=== PATIENT | male | born 1985 | race Caucasian/White ===

== ENCOUNTER 2020-10-23 07:27 | Outpatient (REF) | payer OTHER, SELFPAY ==
--- NOTE | ~2020-10-23 | CT_ITS ---
EXAMINATION: CT ABDOMEN AND PELVIS WITH CONTRAST CLINICAL INFORMATION: Surveillance. COMPARISON: None TECHNIQUE: Multidetector volumetric images were obtained from the superior aspect of the liver through the pubic symphysis following administration 85 mL of Omnipaque 350 intravenous contrast. Sagittal and coronal reformatted images were obtained on the technologist's workstation. Oral contrast: Yes This CT examination was performed using dose optimization techniques as appropriate, variously including the following: *Automated exposure control *Adjustment of mA and/or kV according to patient size (this includes techniques or standardized protocols for targeted exams where dose is matched to indication/reason for exam; i.e. extremities or head) *Use of iterative reconstruction technique DLP: 460 mGy-cm FINDINGS: LUNG BASES: The visualized lung bases are unremarkable. LIVER, GALLBLADDER, AND BILIARY TREE: The liver is normal in size, shape, and attenuation. No focal hepatic lesion or biliary ductal dilatation is present. There is a tiny gallstone in the gallbladder. The gallbladder is otherwise unremarkable. PANCREAS: Unremarkable. SPLEEN: Unremarkable. ADRENAL GLANDS: Unremarkable. KIDNEYS AND URETERS: There are areas of cortical thinning or scarring seen in both kidneys. The kidneys are otherwise unremarkable. BLADDER: Unremarkable. GASTROINTESTINAL TRACT: The small and large bowel is unremarkable. The appendix is not seen. There is an esophageal hernia. ABDOMINAL WALL: There is a tiny umbilical hernia containing fat. LYMPH NODES: There are surgical clips in the retroperitoneum suggestive of previous lymph node dissection. No adenopathy or ascites is seen. VASCULAR: Unremarkable. PELVIC VISCERA: Unremarkable. OSSEOUS STRUCTURES: There is bilateral spondylolysis at L5. There is very mild 2 mm anterior subluxation of L5 with respect to S1. No bone lesion is seen. CT/CT abdomen pelvis w con IMPRESSION: Cortical thinning or scarring in both kidneys. Small esophageal hernia. Evidence of previous retroperitoneal lymph node dissection. No adenopathy is seen.
[2020-10-23 08:07] LABS: Blood Urea Nitrogen 10 mg/dL (9-16); Estimated Glomerular Filt Rate > 60
[2020-10-23] MEDS: iohexoL 350 MG/ML 100 ML INFUS..BTL IV (10:22)
[2020-10-23] MEDS: Barium Sulfate Oral (Vanilla) 450 ML ORAL.SUSP 900 ML PO (10:23)
== END 2020-10-23 07:28 | disposition home or self-care (01) ==
LOC: HO.CT 07:27
PROVIDERS: PCP Internal Medicine; Visit Provider Internal Medicine
DX: Z85.47 Personal history of malignant neoplasm of testis (principal)
CPT/HCPCS: 36415; 74177; 82565; 84520; Q9967

== ENCOUNTER → 2023-10-25 10:33 | Outpatient (RCR) | payer OTHER, SELFPAY ==
[2020-09-09 10:25] VITALS: BP 117/72; PULSE 74; RESP 14; TEMP 36.4; O2SAT 96; BMI 21.7
[2020-09-09 11:35] LABS: MANUAL DIFF FLAG NO
[2020-09-09 11:54] LABS: Basophils Percent Auto 0.4 % (0-2); Eosinophils Absolute Auto 0.2 X10*3/uL (0.0-0.4); Eosinophils Percent Auto 3.4 % (0-4); Hematocrit 47.2 % (42-52); Hemoglobin 14.9 g/dl (14.0-18.0); Imm Gran Abs Auto 0.02 X10*3/uL (0.00-0.03); Imm Gran Pct Auto 0.3 % (0.0-0.4); Lymphocytes Absolute Auto 2.4 X10*3/uL (1.2-4.9); Lymphocytes Percent Auto 34.8 % (20-40); Mean Corpuscular HGB Conc 31.6 g/dl (31.0-36.0); Mean Corpuscular Hemoglobin 25.1 pg (27.0-33.0); Mean Corpuscular Volume 79.6 fL (80-98); Mean Platelet Volume 9.7 fL (9.4-12.4); Monocytes Absolute Auto 0.7 X10*3/uL (0.1-1.2); Monocytes Percent Auto 10.6 % (2-11); Neutrophils Absolute Auto 3.4 X10*3/uL (2.0-8.3); Neutrophils Percent Auto 50.5 % (45-73); Platelet Count 243 X10*3/uL (160-400); Red Blood Count 5.93 X10*6/uL (4.60-5.80); Red Cell Distribution Width 13.2 % (11.0-16.0); White Blood Count 6.8 X10*3/uL (4.8-10.8)
[2020-09-09 12:22] LABS: Alanine Aminotransferase 24 U/L (0-40); Albumin Level 4.7 g/dL (3.5-5.0); Alkaline Phosphatase 87 U/L (39-117); Anion Gap 12 (12-20); Aspartate Amino Transferase 18 U/L (5-37); Bilirubin Total 0.7 mg/dL (0.0-1.0); Blood Urea Nitrogen 17 mg/dL (9-16); Calcium 9.5 mg/dL (8.4-10.2); Carbon Dioxide 27 mmol/L (22-29); Chloride 105 mmol/L (96-108); Creatinine Clr Calc Pharmacy 90.8; Estimated Glomerular Filt Rate > 60; Glucose Random 80 mg/dL (60-115); Lactate Dehydrogenase 133 U/L (118-273); Potassium 4.2 mmol/L (3.3-5.1); Sodium 140 mmol/L (135-145); Total Protein 7.4 g/dL (6.5-8.0)
--- NOTE | 2020-09-09 12:24 | P.CNHO_ITS ---
Subjective - Subjective Chief complaint: History of testicular cancer Consult date: 09/09/20 Primary Care Provider: Rob Godoy MD HPI - Consult Narrative Reason for consult: History of testicular cancer Narrative: Myles Donis is a 34 year old male who is here with his mother establishing care. Patient was diagnosed with testicular cancer in [place]. He had surgery including retroperitoneal dissection and 4 cycles of chemotherapy. They are not sure if it is seminoma or non seminoma. They tell me he was advanced stage and that he had to undergo major surgery. He did not receive radiotherapy. After moving to [place], they saw an oncologist associated with [facility] with a decided to switch care citing they were not happy with the care they received. They also stated that they had 1 imaging study done through [facility]. At this time patient states that he is in chronic pain since his cancer surgery. He used to take Percocet but this has been discontinued since he moved to [place]. He now takes Tylenol and ibuprofen as needed. Patient also suffers from insomnia and anxiety symptoms. He has been trying to see a psychiatrist locally but not met somebody that he likes so far. Review of Systems - Constitutional Reports as per HPI, Reports no additional constitutional complaints Oncology Screenings - ECOG Performance Status ECOG Performance Status: 0 [facility] Medical History: Medical History (Last Updated 08/22/20 @ 11:08 by Rob Godoy MD) Prior testicular cancer Family History: Family History (Last Updated 09/09/20 @ 10:32 by Silvia Broderick) Father No problems noted. Brother Testicular cancer Maternal Grandfather Brain cancer HTN (hypertension) Mother COPD (chronic obstructive pulmonary disease) Surgical History: Surgical History (Last Updated 08/12/20 @ 16:11 by Florencio Roche) History of abdominal surgery History of appendectomy History of testicular surgery Social History: Social History (Last Updated 09/09/20 @ 10:32 by Silvia Broderick) Living Situation History: Housing: House Alcohol History: Alcohol intake: current Alcohol History Details: Alcohol intake frequency: holiday/special occasion Tobacco History: Patient Tobacco Use Status: Never used Tobacco Substance Use History: Use of substances other than those prescribed or required for medical reasons : No Occupation Assessmet: service: No Current occupational status: disabled Home Medications and Allergies Home Medications Medication Instructions Recorded Confirmed Type acetaminophen 325 mg tablet 325 mg PO ONCE PRN tab 08/12/20 09/09/20 History ibuprofen 600 mg tablet 600 mg PO TID 08/12/20 09/09/20 History omeprazole 40 mg capsule,delayed 40 mg PO DAILY 08/12/20 09/09/20 History release oxycodone 5 mg tablet 5 mg PO BID PRN 08/12/20 09/09/20 History Allergies Allergy/AdvReac Type Severity Reaction Status Date / Time Iodinated Contrast Media Allergy Rash and Verified 08/22/20 11:06 swollen Physical Exam Vital signs: Vital Signs Temp 97.5 F 09/09/20 10:25 Pulse 74 09/09/20 10:25 Resp 14 09/09/20 10:25 BP 117/72 09/09/20 10:25 Pulse Ox 96 09/09/20 10:25 Intake & Output 09/08/20 09/09/20 09/09/20 18:59 06:59 18:59 Other: Weight 72.8 kg Weight in Grams [id number] Weight 72.8 kg - Constitutional Present: no acute distress, average body habitus - Routine HEENT Exam Head: Present: normal inspection Eye: Present: normal appearance, PERRL - Routine Neck Exam Present: supple. Absent: lymphadenopathy - Routine Chest/Breast/Axilla Exam Axillae: Absent: lymphadenopathy - Routine Respiratory Exam Present: CTAB - Routine Cardiovascular Exam Cardiovascular: Present: RRR, S1, S2 - Routine Abdominal Exam Present: soft Comments: Long linear midline scar which is well-healed. Hem/Onc Consult Result - Labs CBC & Chem 7: 09/09/20 11:32 09/09/20 11:32 Labs: Short CBC 09/09/20 Range/Units 11:32 WBC 6.8 (4.8-10.8) X10*3/uL Hgb 14.9 (14.0-18.0) g/dl Hct 47.2 (42-52) % Plt Count 243 (160-400) X10*3/uL BMP 09/09/20 11:32 Sodium 140 Potassium 4.2 Chloride 105 Carbon Dioxide 27 BUN 17 H Creatinine 1.18 Calcium 9.5 Liver Function 09/09/20 Range/Units 11:32 Total Bilirubin 0.7 (0.0-1.0) mg/dL AST 18 (5-37) U/L ALT 24 (0-40) U/L Alkaline Phosphatase 87 (39-117) U/L Albumin 4.7 (3.5-5.0) g/dL Assessment and Plan (1) Prior testicular cancer Status: Resolved 1. This is a 34-year-old male with history of testicular cancer which was diagnosed and treated in [place] 9 years ago. No records are available at this time. As per history, his stage was advanced and following surgery patient received adjuvant chemotherapy. He also underwent retroperitoneal lymph node dissection. I have ordered blood work including tumor markers LDH, alpha fetoprotein and beta-hCG levels. I have asked for records from [facility] where he was followed briefly and apparently they have records from [place]. Further recommendations to follow after reviewing records. I thank you for this consultation.
[2020-09-10 20:06] LABS: HCG Tumor Marker <3 mIU/mL (<5)
[2020-09-12 12:12] LABS: Alpha Fetoprotein 33.5 ng/mL (<6.1)
--- NOTE | 2020-09-12 15:03 | MHC.HEMONCMA ---
CT orders placed in order contact person.
--- NOTE | 2020-10-16 16:42 | MHC.HEMONC ---
CT APPT BOOKED FOR 10/23/20 AT 8AM . PT AND MOTHER NOTIFIED OF APPT.
--- NOTE | 2020-10-21 16:19 | MHC.HEMONCMA ---
Spoke with patient's mother. I let her know that Dr Carrasco sent over the rx for prednisone and that she can get the benadryl over the counter. Dr Carrasco states that patient needs to take the prednisone starting the night before the CT. On 10/22/2020 at 6pm first prednisone, then another dose at midnight, third dose at 6am and then the fourth dose with TWO 25mg benadryl together [address] to be performed. I explained all of this to the patient's mother, she states she understands and agrees with plan.
--- NOTE | 2020-10-27 10:09 | P.PNHO_ITS ---
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 After orchiectomy, he received 4 cycles of chemotherapy with BEP regimen, apparently he had residual disease so he underwent retroperitoneal dissection. Persistent elevation of tumor marker AFP. Apparently his brother also developed testicular cancer and succumbed to the disease. Interval History Interval history: Patient and his mother are here in follow-up. They here to discuss results of blood work and imaging study. Other than chronic generalized pain he has no new complaints today. [facility] Medical History: Medical History (Last Reviewed 10/27/20 @ 10:24 by Silvia Broderick) Prior testicular cancer Family History: Family History (Last Reviewed 10/27/20 @ 10:24 by Silvia Broderick) Father No problems noted. Brother Testicular cancer Maternal Grandfather Brain cancer HTN (hypertension) Mother COPD (chronic obstructive pulmonary disease) Surgical History: Surgical History (Last Reviewed 10/27/20 @ 10:24 by Silvia Broderick) History of abdominal surgery History of appendectomy History of testicular surgery Social History: Social History (Last Reviewed 10/27/20 @ 10:24 by Silvia Broderick) Living Situation History: Housing: House Alcohol History: Alcohol intake: current Alcohol History Details: Alcohol intake frequency: holiday/special occasion Tobacco History: Patient Tobacco Use Status: Never used Tobacco Substance Use History: Use of substances other than those prescribed or required for medical reasons : No Occupation Assessmet: service: No Current occupational status: disabled Home Medications and Allergies Home Medications Medication Instructions Recorded Confirmed Type acetaminophen 325 mg tablet 325 mg PO ONCE PRN tab 08/12/20 10/27/20 History ibuprofen 600 mg tablet 600 mg PO TID 08/12/20 10/27/20 History omeprazole 40 mg capsule,delayed 40 mg PO DAILY 08/12/20 10/27/20 History release Allergies Allergy/AdvReac Type Severity Reaction Status Date / Time Iodinated Contrast Media Allergy Rash and Verified 10/27/20 10:24 swollen Exam Vital signs: Vital Signs Temp 97.5 F 09/09/20 10:25 Pulse 74 09/09/20 10:25 Resp 14 09/09/20 10:25 BP 117/72 09/09/20 10:25 Pulse Ox 96 09/09/20 10:25 Weight 72.8 kg Body Mass Index 21.7 - Constitutional Present: no acute distress, average body habitus - Routine HEENT Exam Head: Present: normal inspection - Routine Respiratory Exam Present: CTAB - Routine Cardiovascular Exam Cardiovascular: Present: RRR, S1, S2 - Routine Abdominal Exam Present: soft Data - Labs CBC & Chem 7: 09/09/20 11:32 09/09/20 11:32 Labs: 09/09/20 11:32 Alpha Fetoprotein Routine Complete Blood Count Auto Diff Routine Comprehensive Met. Panel Routine HCG Tumor Marker Routine Lactate Dehydrogenase Routine Laboratory Last Values WBC 6.8 X10*3/uL (4.8-10.8) 09/09/20 11:32 RBC 5.93 X10*6/uL (4.60-5.80) H 09/09/20 11:32 Hgb 14.9 g/dl (14.0-18.0) 09/09/20 11:32 Hct 47.2 % (42-52) 09/09/20 11:32 MCV 79.6 fL (80-98) L 09/09/20 11:32 MCH 25.1 pg (27.0-33.0) L 09/09/20 11:32 MCHC 31.6 g/dl (31.0-36.0) 09/09/20 11:32 RDW 13.2 % (11.0-16.0) 09/09/20 11:32 Plt Count 243 X10*3/uL (160-400) 09/09/20 11:32 MPV 9.7 fL (9.4-12.4) 09/09/20 11:32 Immature Gran % (Auto) 0.3 % (0.0-0.4) 09/09/20 11:32 Neut % (Auto) 50.5 % (45-73) 09/09/20 11:32 Lymph % (Auto) 34.8 % (20-40) 09/09/20 11:32 Greenlee % (Auto) 10.6 % (2-11) 09/09/20 11:32 Eos % (Auto) 3.4 % (0-4) 09/09/20 11:32 Baso % (Auto) 0.4 % (0-2) 09/09/20 11:32 Lymph # (Auto) 2.4 X10*3/uL (1.2-4.9) 09/09/20 11:32 Greenlee # (Auto) 0.7 X10*3/uL (0.1-1.2) 09/09/20 11:32 Eos # (Auto) 0.2 X10*3/uL (0.0-0.4) 09/09/20 11:32 Baso # (Auto) 0.0 X10*3/uL (0.0-0.2) 09/09/20 11:32 Abs Immat Gran (auto) 0.02 X10*3/uL (0.00-0.03) 09/09/20 11:32 Absolute Neuts (auto) 3.4 X10*3/uL (2.0-8.3) 09/09/20 11:32 Absolute Nucleated RBC 0.000 X10*3/uL (0.0-0.012) 09/09/20 11:32 Nucleated RBC % (auto) 0.0 /100WBC (0.0-0.2) 09/09/20 11:32 Sodium 140 mmol/L (135-145) 09/09/20 11:32 Potassium 4.2 mmol/L (3.3-5.1) 09/09/20 11:32 Chloride 105 mmol/L (96-108) 09/09/20 11:32 Carbon Dioxide 27 mmol/L (22-29) 09/09/20 11:32 Anion Gap 12 (12-20) 09/09/20 11:32 BUN 17 mg/dL (9-16) H 09/09/20 11:32 Creatinine 1.18 mg/dL (0.5-1.4) 09/09/20 11:32 Estim Creat Clear Calc 90.8 09/09/20 11:32 Estimated GFR > 60 09/09/20 11:32 Random Glucose 80 mg/dL (60-115) 09/09/20 11:32 Calcium 9.5 mg/dL (8.4-10.2) 09/09/20 11:32 Total Bilirubin 0.7 mg/dL (0.0-1.0) 09/09/20 11:32 AST 18 U/L (5-37) 09/09/20 11:32 ALT 24 U/L (0-40) 09/09/20 11:32 Alkaline Phosphatase 87 U/L (39-117) 09/09/20 11:32 Lactate Dehydrogenase 133 U/L (118-273) 09/09/20 11:32 Total Protein 7.4 g/dL (6.5-8.0) 09/09/20 11:32 Albumin 4.7 g/dL (3.5-5.0) 09/09/20 11:32 Alpha Fetoprotein 33.5 ng/mL (<6.1) H 09/09/20 11:32 Tumor Marker HCG <3 mIU/mL (<5) 09/09/20 11:32 Assessment and Plan Patient Active problem list reviewed?: Yes (1) Prior testicular cancer Status: Resolved Assessment and plan: 1. 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 After orchiectomy, he received 4 cycles of chemotherapy with BEP regimen, apparently he had residual disease so he underw ent retroperitoneal dissection. Persistent elevation of tumor marker AFP. In August it was , imaging with CT abdomen/pelvis with contrast performed 10/2020 showed no evidence of disease recurrence. Reviewing his old records, patient has had chronic persistent elevation of AFP. This is probably benign and not an indicator of disease recurrence. CT chest was not performed. Chest x-ray has been ordered. Follow-up in 1 year. - Time Spent With Patient Time Spent with Patient (in minutes): 10
[2020-10-27 10:22] VITALS: BP 122/73; PULSE 84; RESP 14; TEMP 36.2; O2SAT 97; BMI 21.7
--- NOTE | 2020-10-27 14:53 | MHC.HEMONCMA ---
Patient came in for a follow up today and to go over recent CT scans. Patient states he is doing well, but still having pain. Clinical summary was reviewed and updated. Patient had labs and will return in 1 year for a follow up.
--- NOTE | 2020-10-28 10:47 | MHC.HEMONCMA ---
Left voicemail for patient to let him know that Dr Carrasco would like for him to have a chest x-ray. I did ask for him to call back to confirm that he got this message.
--- NOTE | 2020-11-03 08:34 | MHC.HEMONC ---
left message again for Jodi, pt mother re: pt CXR that was ordered when Dr Carrasco saw him. AURA Vega had also previously left message re: this.
--- NOTE | 2021-03-11 13:16 | HE.ONCSEC ---
Message left for patient letting him know he no showed to apt on 03/11/21 and to call us back to reschedule.
--- NOTE | 2021-10-28 08:34 | HO.HEMONCSCH ---
Per Dr. Carrasco, do not call nor send patient N/S letter. Pt only seeks narcotics.
== END | disposition home or self-care (01) ==
LOC: HO.ONC 09-09 10:06
PROVIDERS: PCP Internal Medicine; Referring Provider Internal Medicine; Visit Provider Internal Medicine
DX: Z85.47 Personal history of malignant neoplasm of testis (principal); Z92.21 Personal history of antineoplastic chemotherapy; Z90.79 Acquired absence of other genital organ(s)
CPT/HCPCS: 36415; 80053; 82105; 83615; 84702; 85025; 99202; 99213